=== PATIENT | male | born 1995 | race Two or more races ===

== ENCOUNTER 2020-10-24 11:00 | Emergency (ER) | payer OTHER ==
[~2020-10-24] VITALS: Ht 167.6 cm; Wt 88.5 kg
[2020-10-24] MEDS ORDERED: FLUORESCEIN SOD 1 MG TEST STRIP OP ONE (12:30)
[2020-10-24] MEDS ORDERED: TETRACAINE HCL 0.5% OPTH(EYE) SOLN 4ML EACHEYE ONE (12:30)
[2020-10-24 12:50] VITALS: BP 123/72
== END 2020-10-24 13:23 | disposition home or self-care (01) ==
LOC: ER 11:00
DX: S05.01XA Injury of conjunctiva and corneal abrasion without foreign body, right eye, initial encounter (principal); F17.210 Nicotine dependence, cigarettes, uncomplicated; X58.XXXA Exposure to other specified factors, initial encounter; Y93.89 Activity, other specified; Y92.89 Other specified places as the place of occurrence of the external cause; Y99.8 Other external cause status

== ENCOUNTER 2021-12-31 16:15 | Emergency (ER) | payer OTHER ==
[~2021-12-31] VITALS: Ht 167.6 cm; Wt 88.5 kg
[2021-12-31 16:39] VITALS: BP 113/76
[2021-12-31] MEDS ORDERED: ACETAMINOPHEN 500 MG TAB PO ONE (17:15)
[2021-12-31] MEDS ORDERED: ACET-1080 PO (17:41)
== END 2021-12-31 17:46 | disposition home or self-care (01) ==
LOC: ER 16:15
DX: S01.83XA Puncture wound without foreign body of other part of head, initial encounter (principal); F17.210 Nicotine dependence, cigarettes, uncomplicated; Z79.899 Other long term (current) drug therapy; W22.8XXA Striking against or struck by other objects, initial encounter; Y93.89 Activity, other specified; Y92.89 Other specified places as the place of occurrence of the external cause; Y99.8 Other external cause status
CPT/HCPCS: 70450